=== PATIENT | male | born 1965 | race African-American/Black ===

== ENCOUNTER 2020-06-02 21:18 | Inpatient (IN) | payer MEDICAID ==
[~2020-06-02] VITALS: Ht 175.3 cm; Wt 72.1 kg
[2020-06-02] MEDS ORDERED: ONDANSETRON HCL/PF 4 MG/2 ML VIAL ONE (21:44)
--- NOTE | 2020-06-02 21:52 | NUR ---
[facility]IB[facility]60 BUS STOP C/O "FEELING SICK"/ABD PAIN. PT ASLEEP, EASILY AWAKEN BY VERBAL STIMULI & WILL GO BACK TO SLEEP. RR EVEN & UNLABORED. NO RESP DISTRESS NOTED AT THIS TIME. PT SEEN & EVAL'D BY EMILIE MCCLELLAND. MEDICATED ORDERED, PT JESUS WELL. WILL CONT TO MONITOR.
[2020-06-02] MEDS ORDERED: ONDANSETRON HCL/PF 4 MG/2 ML VIAL IVP ONE (22:00)
[2020-06-02] MEDS ORDERED: IV NS 0.9% 1,000 ML BAG IV ONE (22:00)
[2020-06-02 22:04] LABS: BASOPHILS # (AUTO) 0.1 /CMM (0.0-0.2); BASOPHILS % (AUTO) 0.6 % (0.0-2.0); EOSINOPHILS % (AUTO) 1.8 % (0.0-6.0); HEMATOCRIT 48 % (39-51); HEMOGLOBIN 15.6 g/dL (13.5-17.5); LYMPHOCYTES # (AUTO) 0.8 /CMM (0.8-4.8); LYMPHOCYTES % (AUTO) 8.5 % (20.0-44.0); MEAN CORPUSCULAR HGB CONC 32 g/dl (31.0-36.0); MEAN CORPUSCULAR VOLUME 84 fL (80-96); MONOCYTES # (AUTO) 0.5 /CMM (0.1-1.30); MONOCYTES % (AUTO) 5.7 % (2.0-12.0); NEUTROPHILS # (AUTO) 7.8 /CMM (1.8-8.9); NEUTROPHILS % (AUTO) 83.4 % (43.0-81.0); PLATELET COUNT (AUTO) 300 /CMM (150-450); RED BLOOD CELL COUNT(AUTO) 5.74 MIL/uL (4.5-6.0); WHITE BLOOD COUNT (AUTO) 9.4 K/uL (4.3-11.0)
[2020-06-02 22:28] LABS: ALANINE AMINOTRANSFERASE 21 U/L (12-78); ALBUMIN 4.5 g/dL (3.4-5.0); ALKALINE PHOSPHATASE 76 U/L (46-116); ASPARTATE AMINOTRANSFERASE 14 U/L (15-37); BILIRUBIN,DIRECT 0.1 mg/dL (0.0-0.2); BILIRUBIN,TOTAL 0.5 mg/dL (0.2-1.0); CALCIUM, SERUM 9.7 mg/dL (8.5-10.1); CARBON DIOXIDE 29 mmol/L (21-32); CHLORIDE 102 mmol/L (98-107); CREATININE 1.1 mg/dL (0.6-1.3); GLUCOSE 140 mg/dL (74-106); LIPASE 107 U/L (73-393); POTASSIUM 3.6 mmol/L (3.5-5.1); SODIUM SERUM 140 mmol/L (136-145); TOTAL PROTEIN, SERUM 8.6 g/dL (6.4-8.2); UREA NITROGEN, BLOOD 12 mg/dL (7-18)
--- NOTE | 2020-06-02 22:50 | NUR ---
PT TO CT VIA [facility].
[2020-06-02] MEDS ORDERED: KETOROLAC TROMETHAMINE INJ 30 MG/ML VIAL IV ONE (23:00)
--- NOTE | 2020-06-02 23:05 | NUR ---
PT BACK FROM CT. MEDICATED PER KRYSTIN'S ORDER, PT JESUS WELL.
--- NOTE | 2020-06-03 00:05 | NUR ---
Pt refuses NG Tube insertion. Dr Escobedo aware.
--- NOTE | 2020-06-03 00:18 | NUR ---
CALLED LAB FOR COVID SWAB
--- NOTE | 2020-06-03 00:25 | NUR ---
covid swab collected and sent to lab.
[2020-06-03 00:36] LABS: APPEARANCE,URINE Clear (CLEAR); BILIRUBIN,URINE SMALL (NEGATIVE); BLOOD, URINE Negative Ery/uL (NEGATIVE); COLOR,URINE Yellow (YELLOW); KETONES,URINE Negative (NEGATIVE); LEUKOCYTE ESTERASE ,URINE Negative (NEGATIVE); NITRITE, URINE Negative (NEGATIVE); PH,URINE 5.5 (5.0-8.0); PROTEIN,URINE Trace mg/dl (NEGATIVE); UGLUCOSE Negative (NEGATIVE); UROBILINOGEN,URINE 0.2 EU/dL (0.2)
[2020-06-03 00:48] LABS: BACTERIA,URINE None seen /HPF (None Seen); SQUAMOUS EPITHELIAL CELL,UR Few /HPF (None Seen); WBC,URINE 0-2 /HPF (0-3)
[2020-06-03 00:49] LABS: MUCUS,URINE Many /LPF (None Seen)
--- NOTE | 2020-06-03 01:54 | NUR ---
REPORT GIVEN TO SARA JOVEL FOR NAYELY.
[2020-06-03] MEDS ORDERED: Z GUARD REMEDY 2 OZ OINT TP PRN (02:00)
[2020-06-03] MEDS ORDERED: MAG HYDROX/AL HYDROX/SIMETH 30 ML UDC PO PRN (02:00)
[2020-06-03] MEDS ORDERED: MORPHINE SULFATE INJ 2 MG/ML DISP.SYRIN IV PRN (02:00)
[2020-06-03] MEDS ORDERED: ONDANSETRON HCL/PF 4 MG/2 ML VIAL IVP PRN (02:00)
[2020-06-03] MEDS ORDERED: MAGNESIUM HYDROXIDE 30 ML UDC PO PRN (02:00)
[2020-06-03] MEDS ORDERED: HYDROCODONE/APAP 5/325MG 1 EACH TABLET PO PRN (02:00)
[2020-06-03] MEDS ORDERED: ACETAMINOPHEN 325 MG TABLET PO PRN (02:00)
--- NOTE | 2020-06-03 02:00 | NUR ---
STAFF FROM ADMITTING FLOOR FOR PATIENT STATES THAT ROOM IS BEING CLEANED WAIT 15 MINUTES.
--- NOTE | 2020-06-03 02:16 | NUR ---
PATIENT TAKEN TO ROOM.
--- NOTE | 2020-06-03 02:19 | NUR ---
RN NOTE PT ARRIVED TO UNIT, V/S T. 97.9, BP 92/59 PULSE 68, RR 18, O2 SAT 100% ON ROOM AIR. PT IN NO RESPIRATORY DISTRESS. PT A/O X 3, IV TO RFA PATENT, INTACT AND FLUSHING WELL. PT CLEANED AND MADE COMFORTABLE. PT DENIES ANY PAIN AT THIS TIME. SAFETY MEASURES IN PLACE, BED LOCKED AND IN LOWEST POSITION, CALL LIGHT WITHIN REACH WILL CONTINUE TO MONITOR PT.
[2020-06-03] MEDS: IV NS 0.9% 1,000 ML IV PRN ×2 (02:28→22:39)
[2020-06-03 02:37] VITALS: BP 92/59
[2020-06-03 04:00] VITALS: BP 100/50
[2020-06-03 06:25] LABS: BASOPHILS # (AUTO) 0.1 /CMM (0.0-0.2); BASOPHILS % (AUTO) 0.7 % (0.0-2.0); EOSINOPHILS % (AUTO) 1.9 % (0.0-6.0); HEMATOCRIT 41 % (39-51); LYMPHOCYTES # (AUTO) 1.1 /CMM (0.8-4.8); LYMPHOCYTES % (AUTO) 12.3 % (20.0-44.0); MEAN CORPUSCULAR HGB CONC 32 g/dl (31.0-36.0); MEAN CORPUSCULAR VOLUME 85 fL (80-96); MONOCYTES # (AUTO) 0.5 /CMM (0.1-1.30); MONOCYTES % (AUTO) 6.3 % (2.0-12.0); NEUTROPHILS # (AUTO) 6.8 /CMM (1.8-8.9); NEUTROPHILS % (AUTO) 78.8 % (43.0-81.0); PLATELET COUNT (AUTO) 255 /CMM (150-450); RED BLOOD CELL COUNT(AUTO) 4.79 MIL/uL (4.5-6.0); WHITE BLOOD COUNT (AUTO) 8.6 K/uL (4.3-11.0)
[2020-06-03 06:43] LABS: CALCIUM, SERUM 8.4 mg/dL (8.5-10.1); CREATININE 0.9 mg/dL (0.6-1.3); MAGNESIUM 2.2 mg/dL (1.8-2.4); PHOSPHORUS 3.1 mg/dL (2.5-4.9); POTASSIUM 3.9 mmol/L (3.5-5.1)
--- NOTE | 2020-06-03 06:48 | NUR ---
RN CLOSING NOTE PT RESTING IN BED WITH HEAD IN SEMI-FOWLERS POSITION. PT ON ROOM AIR AND IN NO RESPIRATORY DISTRESS THROUGHOUT SHIFT. PT CURRENTLY NPO. IV TO RFA PATENT, INTACT AND FLUSHING WELL. NS INFUSING AT 75 ML/HR. NO C/O PAIN DURING SHIFT. SAFETY MEASURES IN PLACE, BED LOCKED AND IN LOWEST POSITION, CALL LIGHT WITHIN REACH. ENDORSED TO AM RN FOR NAYELY.
[2020-06-03 07:05] LABS: THYROID STIMULATING HORMONE 0.898 uIU/mL (0.358-3.74)
--- NOTE | 2020-06-03 07:05 | NUR ---
RN OPENING NOTE RECEIVED PT IN BED, RESTING WITH HEAD IN SEMI-FOWLERS POSITION. PT ON ROOM AIR AND SATURATING AT 99% . PT CURRENTLY NPO. IV TO RFA @ 75ML/HR. PATENT, INTACT AND FLUSHING WELL. NO C/O PAIN DURING SHIFT. SAFETY MEASURES IN PLACE, BED LOCKED AND IN LOWEST POSITION, CALL LIGHT WITHIN REACH. WILL CONTINUE TO MONITOR
[2020-06-03 16:00] VITALS: BP 124/76
--- NOTE | 2020-06-03 18:06 | NUR ---
Charlotte from case management called, dialed ext [phone] and connected patient to Charlotte from room .
--- NOTE | 2020-06-03 18:36 | NUR ---
RN CLOSING NOTE WILL ENDORSE PATIENT TO PM NURSE FOR NAYELY. PT RESTING IN BED COMFORTABLY. PATIENT IS ON ROOM AIR SATURATING AT 98%. NO RESPIRATORY DISTRESS THROUGHOUT SHIFT. PT PLACED ON REGULARS DIET SINCE 12:00 PER MD. IV TO RFA PATENT, INTACT AND FLUSHING WELL. SAFETY MEASURES IN PLACE, BED LOCKED AND IN LOWEST POSITION, CALL LIGHT WITHIN REACH.
--- NOTE | 2020-06-03 19:30 | NUR ---
RN OPENING NOTES client is resting in bed on RA, Sat 100%. Client denies pain, no S/S of pain. A/O x3. No s/s of distress. RFA 20G, flushing well. All safety mechanisms in place at this time, will continue to monitor.
--- NOTE | 2020-06-03 22:32 | NUR ---
RN NOTES The client refuses IV fluids. The client has been eating 100% of the meals and requests extra fluids for oral intake. Will continue to monitor.
[2020-06-04 04:00] VITALS: BP 124/76
--- NOTE | 2020-06-04 06:35 | NUR ---
RN CLOSING NOTES client remains stable with no chage of condition. VS within normal limits, sat 100% on RA, denies pain, no s/s of distress at this time. A/o x3, verbal, and able to ambulate. All needs have been rendered at this time. Bed in the lowest position, side rails up x2, call light within reach. Will endorse the next shift.
--- NOTE | 2020-06-04 09:13 | NUR ---
RN OPENING NOTE RECEIVED PT IN BED, RESTING WITH HEAD IN SEMI-FOWLERS POSITION. PT ON ROOM AIR AND SATURATING AT 98% . NOTED IV TO RFA, PATENT, INTACT AND FLUSHING WELL. SAFETY MEASURES IN PLACE, BED LOCKED AND IN LOWEST POSITION, CALL LIGHT WITHIN REACH. WILL CONTINUE TO MONITOR
--- NOTE | 2020-06-04 13:15 | NUR ---
SW CONSULT: ALISSA conducted social work case manager consult remotely to address the pt's homeless status. ALISSA consulted with pt's RN, Rizwana for assistance in setting up the phone call. Pt reported he is NOT homeless, rents a room in [place] on [facility]" and his plan is to discharge back to his room. Pt refused to speak to SW beyond clarification of his housing status, and refused all services. surgical services coordinator available for support as needed.
--- NOTE | 2020-06-04 14:10 | NUR ---
PER ORDERS , CLIENT WAS DISCHARGE . STABLE VITALS, REMOVED RFA # 20 . CLIENT SIGNED THE HOMELESS CHECKLIST LIST. CLIENT WILL TAKE THE BUS.
== END 2020-06-04 16:41 | disposition home or self-care (01) | DRG 247 ==
LOC: ER 21:20 → MEDSG1 06-03 01:37
PROVIDERS: ADMIT Nurse Practitioner Acute Care; ATTEND Nurse Practitioner Acute Care
DX: K56.609 Unspecified intestinal obstruction, unspecified as to partial versus complete obstruction (principal); Z59.0 Homelessness; E11.9 Type 2 diabetes mellitus without complications
CPT/HCPCS: 36415; 74018; 80048-TC; 80061-TC; 80076-TC; 81000-TC; 83690-TC; 83735-TC; 84100-TC; 84443-TC; 84484-TC; 85025-TC; 87081-TC; G0378; G0480; J1885; J2405; J3490; J7030; U0003-CS

== ENCOUNTER 2021-02-19 22:36 | Inpatient (IN) | payer MEDICAID ==
[~2021-02-19] VITALS: Ht 172.7 cm; Wt 74.8 kg
--- NOTE | 2021-02-19 22:46 | NUR ---
PT AAOX4. BIBRA C/O GEN ABD PAIN, PT PLACED ON MONITOR AND PULSE OX. ER MD AT BEDSIDE. AWAITING ORDERS.
--- NOTE | 2021-02-19 22:47 | NUR ---
RADIOLOGY AT BEDSIDE FOR CHEST XRAY.
[2021-02-19] MEDS ORDERED: ASPIRIN 81 MG TAB.CHEW ONE (22:50)
[2021-02-19] MEDS ORDERED: NITROGLYCERIN PACKET 1 GM PACKET ONE (22:50)
[2021-02-19] MEDS ORDERED: OLANZAPINE 5 MG TABLET ONE (22:50)
[2021-02-19] MEDS ORDERED: OLANZAPINE 5 MG TABLET PO ONE (23:00)
[2021-02-19] MEDS ORDERED: ASPIRIN 81 MG TAB.CHEW PO ONE (23:00)
[2021-02-19] MEDS ORDERED: NITROGLYCERIN PACKET 1 GM PACKET TD ONE (23:00)
--- NOTE | 2021-02-19 23:12 | NUR ---
ANUJID SWABBED, SENT TO LAB.
[2021-02-19 23:14] LABS: BASOPHILS # (AUTO) 0.1 /CMM (0.0-0.2); BASOPHILS % (AUTO) 0.7 % (0.0-2.0); HEMATOCRIT 36 % (39-51); LYMPHOCYTES # (AUTO) 0.6 /CMM (0.8-4.8); LYMPHOCYTES % (AUTO) 5.4 % (20.0-44.0); MEAN CORPUSCULAR HGB CONC 33 g/dl (31.0-36.0); MEAN CORPUSCULAR VOLUME 82 fL (80-96); MONOCYTES # (AUTO) 0.1 /CMM (0.1-1.30); MONOCYTES % (AUTO) 0.6 % (2.0-12.0); NEUTROPHILS # (AUTO) 8.1 /CMM (1.8-8.9); NEUTROPHILS % (AUTO) 67.6 % (43.0-81.0); PLATELET COUNT (AUTO) 270 /CMM (150-450); RED BLOOD CELL COUNT(AUTO) 4.42 MIL/uL (4.5-6.0)
[2021-02-19 23:16] LABS: EOSINOPHILS % (AUTO) 25.7 % (0.0-6.0)
[2021-02-19 23:28] LABS: EOSINOPHILS % (MANUAL) 5 % (0-4); LYMPHOCYTES % (MANUAL) 5 % (16-48); MONOCYTES % (MANUAL) 7 % (0-11.0); NEUTROPHILS % (MANUAL) 83 (42-76)
--- NOTE | 2021-02-19 23:30 | NUR ---
BROUGHT TO CT
[2021-02-19 23:41] LABS: CALCIUM, SERUM 8.9 mg/dL (8.5-10.1); CARBON DIOXIDE 29 mmol/L (21-32); CHLORIDE 104 mmol/L (98-107); CREATININE 1.1 mg/dL (0.6-1.3); GLUCOSE 103 mg/dL (74-106); POTASSIUM 3.5 mmol/L (3.5-5.1); SODIUM SERUM 140 mmol/L (136-145); UREA NITROGEN, BLOOD 11 mg/dL (7-18)
[2021-02-19 23:46] LABS: CHOLESTEROL 138 mg/dL (<200); HDL CHOLESTEROL 92 mg/dL (40-60); LDL 39 mg/dL (0-99); TRIGLYCERIDES 48 mg/dL (30-150)
--- NOTE | 2021-02-19 23:46 | NUR ---
BROUGHT BACK FROM CT. PT UNABLE TO PROVDIE URINE SAMPLE. AMERICO VICTORIA AWARE. Addendum: 02/19/21 at 2347 by EVICTOR PROVIDE*
[2021-02-19 23:53] LABS: ALANINE AMINOTRANSFERASE 24 U/L (12-78); ALKALINE PHOSPHATASE 99 U/L (46-116); ASPARTATE AMINOTRANSFERASE 21 U/L (15-37); B-TYPE NATRIURETIC PEPTIDE 517 PG/ML (0-125); BILIRUBIN,DIRECT 0.1 mg/dL (0.0-0.2); BILIRUBIN,TOTAL 0.4 mg/dL (0.2-1.0); TOTAL PROTEIN, SERUM 7.2 g/dL (6.4-8.2)
--- NOTE | 2021-02-19 23:56 | NUR ---
URINE COLLECTED, SENT TO LAB.
[2021-02-20 00:04] LABS: BILIRUBIN,URINE NEGATIVE (NEGATIVE); COLOR,URINE YELLOW (YELLOW); LEUKOCYTE ESTERASE ,URINE NEGATIVE (NEGATIVE); NITRITE, URINE NEGATIVE (NEGATIVE); PH,URINE 6.5 (5.0-8.0); PROTEIN,URINE NEGATIVE (NEGATIVE); UGLUCOSE NEGATIVE (NEGATIVE); UROBILINOGEN,URINE 0.2 EU/dL (0.2)
--- NOTE | 2021-02-20 00:13 | NUR ---
PT FELL ASLEEP, SAT 92%. PT PLACED ON 2L NC. SAT 99%.
--- NOTE | 2021-02-20 00:35 | NUR ---
DR. RICHARDS SPEAKING WITH LESLEY CUI DNP REGARDING ADMISSION
--- NOTE | 2021-02-20 01:02 | NUR ---
REPORT GIVEN TO LUKAS RN FOR NAYELY
--- NOTE | 2021-02-20 01:14 | NUR ---
PT TRANSFERED PER ACLS PROTOCOL
[2021-02-20 01:15] VITALS: BP 108/70
[2021-02-20] MEDS ORDERED: ACETAMINOPHEN 325 MG TABLET PO PRN (01:30)
[2021-02-20] MEDS ORDERED: HYDROCODONE/APAP 10/325MG TABLET PO PRN (01:30)
[2021-02-20] MEDS ORDERED: OLANZAPINE 5 MG TABLET PO PRN (01:30)
[2021-02-20] MEDS ORDERED: Z GUARD REMEDY 2 OZ OINT TP PRN (01:30)
[2021-02-20] MEDS ORDERED: ONDANSETRON HCL/PF 4 MG/2 ML VIAL IVP PRN (01:30)
--- NOTE | 2021-02-20 01:30 | NUR ---
RN NOTE RECEIVED PT FROM ER AT 0111. ADMITTED TO TELE, NO RESP DISTRESS NOTED. ON O2 VIA NC AT 2LPM. PT SLEEPING, UNABLE TO REMAIN AWAKE WITH DEEP STIMULATION, WILL OPEN EYES AND FALLS BACK TO SLEEP, ALSO SNORING WERE NOTED. UNABLE TO OBTAIN ANY INFORMATION/HISTORY WITH PATIENT. NO SIGNS OF PAIN OR DISCOMFORT NOTED. HOOKED TO EXTERNAL TELE MONITOR, SHOWS SR WITH PVCS. IV ON RFA PATENT AND INTACT. PT WITH MULTIPLE/SCATTERED SCARS, NO SIGNS OF INFECTION NOTED. PT BELONGINGS LISTED, FOUND 1 CIGARETTE AND WHARF BUILDER, GAVE TO CHARGE NURSE WAS PUT ON LOCKER. ALL SAFETY MEASURES IMPLEMENTED PER PROTOCOL. CALL LIGHT WITHIN REACH. BED LOCKED IN LOWEST POSITION. WILL CONTINUE TO MONITOR.
[2021-02-20] MEDS: ENOXAPARIN SODIUM 40 MG/0.4 ML DISP.SYRIN SQ SCH ×2 (02:28→21:30)
[2021-02-20 04:00] VITALS: BP 112/58
[2021-02-20 06:25] LABS: BASOPHILS % (AUTO) 0.5 % (0.0-2.0); EOSINOPHILS % (AUTO) 6.4 % (0.0-6.0); HEMATOCRIT 36 % (39-51); HEMOGLOBIN 11.6 g/dL (13.5-17.5); LYMPHOCYTES # (AUTO) 1.1 /CMM (0.8-4.8); LYMPHOCYTES % (AUTO) 11.8 % (20.0-44.0); MEAN CORPUSCULAR HGB CONC 33 g/dl (31.0-36.0); MEAN CORPUSCULAR VOLUME 82 fL (80-96); MONOCYTES # (AUTO) 0.6 /CMM (0.1-1.30); NEUTROPHILS # (AUTO) 7.1 /CMM (1.8-8.9); NEUTROPHILS % (AUTO) 75.3 % (43.0-81.0); PLATELET COUNT (AUTO) 262 /CMM (150-450); RED BLOOD CELL COUNT(AUTO) 4.35 MIL/uL (4.5-6.0); WHITE BLOOD COUNT (AUTO) 9.4 K/uL (4.3-11.0)
--- NOTE | 2021-02-20 06:33 | NUR ---
RN NOTES PT REMAIN ASLEEP. AROUSES EASILY BUT FALLS BACK TO SLEEP RIGHT AWAY. PT DENIES ANY PAIN. PT ABLE TO USE URINAL. IV REMAIN INTACT AND PATENT. CONTINUE ON O2 AT 2LPM. NO DISTRESS NOTED, ALL SAFETY MEASURES MAINTAINED. WILL ENDORSE TO NEXT SHIFT NURSE FOR NAYELY.
[2021-02-20 07:20] LABS: ALBUMIN 2.8 g/dL (3.4-5.0); BILIRUBIN,TOTAL 0.6 mg/dL (0.2-1.0); CALCIUM, SERUM 8.4 mg/dL (8.5-10.1); CREATININE 1.1 mg/dL (0.6-1.3); MAGNESIUM 2.3 mg/dL (1.8-2.4); PHOSPHORUS 3.3 mg/dL (2.5-4.9); TOTAL PROTEIN, SERUM 6.8 g/dL (6.4-8.2)
[2021-02-20] MEDS: PANTOPRAZOLE 40 MG TABLET.DR PO SCH (07:29)
--- NOTE | 2021-02-20 07:40 | NUR ---
WOUND CARE CONSULT: PT PRESENTS INDEPENDENT WITH BED MOBILITY, CONTINENT WITH DRY SKIN AND SCARS TO LEGS, BUTTOCKS AND BACK, PRESENT ON ADMISSION. WILL SEE PRN.
--- NOTE | 2021-02-20 07:41 | NUR ---
RN OPENING NOTE PATIENT IS CURRENTLY ASLEEP IN BED WITH HOB AT [facility]. PATIENT HAS NO SIGNS OF LABORED BREATHING ON 2L NC. BLE SCARS NOTED. RFA #18 IS PATENT, INTACT, AND HAS NO SIGNS OF INFILTRATION. BED IS LOCKED IN THE LOWEST POSITION, 3 GUARD RAILS RAISED, CALL HANLEY WITHIN REACH, AND ALL HOSPITAL SAFETY PRECAUTIONS ARE BEING FOLLOWED. WILL CONTINUE TO MONITOR THROUGHOUT SHIFT.
[2021-02-20 08:00] VITALS: BP 110/80
[2021-02-20] MEDS: ASPIRIN EC 81 MG TABLET.DR PO SCH (09:02)
[2021-02-20 12:00] VITALS: BP 113/63
--- NOTE | 2021-02-20 13:00 | NUR ---
Cigarette And Filter Chief Inspector: services tech received request for consult for homelessness. SW will follow up with the patient at a later time.
[2021-02-20 16:00] VITALS: BP 109/70
[2021-02-20] MEDS: OLANZAPINE 5 MG TABLET PO SCH (17:41)
--- NOTE | 2021-02-20 18:51 | NUR ---
RN CLOSING NOTE PATIENT IS CURRENTLY IN BED WITH HOB AT [facility]. PATIENT HAS NO SIGNS OF LABORED BREATHING ON 2L NC. BLE SCARS NOTED. RFA #18 IS PATENT, INTACT, AND HAS NO SIGNS OF INFILTRATION. BED IS LOCKED IN THE LOWEST POSITION, 3 GUARD RAILS RAISED, CALL HANLEY WITHIN REACH, AND ALL HOSPITAL SAFETY PRECAUTIONS ARE BEING FOLLOWED. ALL DUE MEDS GIVEN DURING SHIFT AND PATIENT REMAINED STABLE. WILL ENDORSE TO WINDER FIXER RN.
--- NOTE | 2021-02-20 19:30 | NUR ---
RN OPENING NOTES: RECEIVED PT A/OX3 IN BED SLEEPING COMFORTABLY. PATIENT IN NO S/SX OF ACUTE DISTRESS AT THIS TIME. NO SOB NOTED. PATIENT'S BREATHING IS EVEN AND UNLABORED. PATIENT IS ON 2L OF OXYGEN VIA NC; TOLERATING WELL. PATIENT ON TELE MONITORING READING SINUS RHYTHM AT THE TIME OF RECEIVED. PATIENT ON CARDIAC DIET; TOLERATES WELL. NOTED IV SITE ON R FA#18; PATENT, INTACT AND FLUSHING WELL; NO S/S OF INFECTION OR INFILTRATION. WITH URINAL @ BEDSIDE. SAFETY MEASURES HAVE BEEN PROVIDED AND IMPLEMENTED. PATIENT BED ALARM IS ON. HEAD OF BED ELEVATED. BED IS LOCKED, IN LOWEST POSITION AND SIDE RAILS UP. CALL LIGHT WITHIN REACH OF THE PATIENT. APPLICABLE ISOLATION PRECAUTIONS IN PLACE. WILL CONTINUE TO MONITOR AND REASSESS FOR ANY CHANGES AND WILL CARRY OUT ANY ONGOING AND ACTIVE MD ORDER.
[2021-02-20 20:00] VITALS: BP 122/71
--- NOTE | 2021-02-20 23:00 | NUR ---
RN NOTES NO CHANGE IN PATIENT CONDITION AT THIS TIME PATIENT VITALS STABLE, NO SIGNS OF ACUTE RESPIRATORY DISTRESS. VENEER JOINTER MADE AWARE. WILL CONTINUE TO MONITOR AND REASSESS FOR ANY CHANGES THROUGHOUT THE SHIFT.
[2021-02-21] VITALS: BP 116/74
--- NOTE | 2021-02-21 03:00 | NUR ---
RN NOTES PATIENT REMAINS IN NO ACUTE RESPIRATORY DISTRESS AT THIS TIME, NO CHANGES TO CONDITION/STATUS. PHOTOGRAPHIC INTELLIGENCE OFFICER WELL AWARE. WILL CONTINUE TO MONITOR AND REASSESS FOR ANY CHANGES THROUGHOUT THE SHIFT
[2021-02-21 04:00] VITALS: BP 124/65
--- NOTE | 2021-02-21 06:56 | NUR ---
RN CLOSING NOTE: PATIENT REMAINS IN ROOM RESTING COMFORTABLY.NO SIGNS OF RESPIRATORY DISTRESS PATIENT STILL ON 2L O2 VIA NC ;TOLERATING WELL SATURATING @ >95% SP02.PATIENT IS CLEAN , DRY AND COMFORTABLE THROUGHOUT THE SHIFT. ALL DUE MEDS GIVEN ORDERED ;PATIENT TOLERATED WELL. SAFETY MEASURES IMPLEMENTED, BED IN LOWEST POSITION, LOCKED, SIDE RAILS UP, CALL LIGHT WITHIN REACH. PATIENT ENDORSED TO INCOMING SHIFT RN WITH STABLE VITAL SIGN AND FOR CONTINUITY OF CARE.
[2021-02-21] MEDS: PANTOPRAZOLE 40 MG TABLET.DR PO SCH (07:45)
--- NOTE | 2021-02-21 07:48 | NUR ---
IT DISASTER RECOVERY MANAGER NOTE: PATIENT REMAINS IN ROOM RESTING COMFORTABLY.NO SIGNS OF RESPIRATORY DISTRESS PATIENT STILL ON RA AT THIS TIME NO SOB NOTED SATURATING @ >95% SP02.PATIENT IS CLEAN , DRY AND SAFETY MEASURES IMPLEMENTED, BED IN LOWEST POSITION, LOCKED, SIDE RAILS UP, CALL LIGHT WITHIN REACH. ON TELE MONITOR HR 77 , RT FA HL INTACT AND PATENT ,WILL CONT TO MONITOR,HAVING BREAKFAST
[2021-02-21 08:00] VITALS: BP 130/73
[2021-02-21] MEDS: OLANZAPINE 5 MG TABLET PO SCH (08:13)
[2021-02-21] MEDS: ASPIRIN EC 81 MG TABLET.DR PO SCH (08:13)
--- NOTE | 2021-02-21 10:20 | NUR ---
telecommunications field technician note explained to patient wait for social working for information for researches placement, but strangely refused to wait wants to go now ama
--- NOTE | 2021-02-21 10:25 | NUR ---
COTTON MACHINE OPERATOR NOTE PATIENT WANTS TO GO AMA ,EXPLANATION GIVEN TO BE SEEN BY DOCTOR AND BENEFITS TO STAY IN HOSPITAL , BUT STILL WANTS TO GO AMA PHIL RN ECONOMETRICIAN NOTIFIED, PATIENT REFUSED TO WAIT FOR PAPER WORK STATED I WONT TO GO NOW , TELE REMOVED HL ON RT FA REMOVED, DRY DRESSING APPLIED , NO BLEEDING NOTED, BELONGING SIGNED, ASSISTED TO PLACE ON [address] AND TAKEN TO LOBBY , FORM FOR AMA SIGNED BY PATIENT , LEFT A HOSPITAL WITH STABLE CONDITION
--- NOTE | 2021-02-21 13:30 | NUR ---
SW attempted to meet with pt. for homelessness and provide homeless resources, assist with discharge. However, pt. has already left AMA.
== END 2021-02-21 10:20 | disposition left against medical advice (07) | DRG 816 ==
LOC: ER 22:37 → TELE1 02-20 00:54 → MEDSG1 02-21 08:03 → TELE1 02-21 08:05
PROVIDERS: ADMIT Nurse Practitioner Acute Care; ATTEND Nurse Practitioner Acute Care
DX: T40.5X1A Poisoning by cocaine, accidental (unintentional), initial encounter (principal); I25.10 Atherosclerotic heart disease of native coronary artery without angina pectoris; E11.9 Type 2 diabetes mellitus without complications; G92 Toxic encephalopathy; I10 Essential (primary) hypertension; E44.0 Moderate protein-calorie malnutrition; Z59.0 Homelessness; Z20.822 Contact with and (suspected) exposure to COVID-19; F25.9 Schizoaffective disorder, unspecified; F29 Unspecified psychosis not due to a substance or known physiological condition; Z87.891 Personal history of nicotine dependence; E78.5 Hyperlipidemia, unspecified; E78.00 Pure hypercholesterolemia, unspecified; F14.10 Cocaine abuse, uncomplicated; D64.9 Anemia, unspecified; Y92.009 Unspecified place in unspecified non-institutional (private) residence as the place of occurrence of the external cause; F12.10 Cannabis abuse, uncomplicated
CPT/HCPCS: 36415; 71045-TC; 80048-TC; 80053-TC; 80061-TC; 80076-TC; 83735-TC; 83880; 84100-TC; 84484-TC; 85025-TC; 87081-TC; 93307-TC; 94799-TC; 97116-TC; 97530-TC; C9803; G0378; J1650; U0003

== ENCOUNTER 2021-03-12 22:28 | Emergency (ER) | payer OTHER ==
[~2021-03-12] VITALS: Ht 167.6 cm; Wt 74.8 kg
[2021-03-12 22:33] VITALS: BP 136/86
[2021-03-12] MEDS ORDERED: IBUPROFEN 600 MG TABLET PO ONE (23:30)
[2021-03-12] MEDS ORDERED: IBUPROFEN 600 MG TABLET ONE (23:46)
== END 2021-03-13 00:27 | disposition home or self-care (01) ==
LOC: ER 22:29
DX: M54.5 Low back pain (principal); E11.9 Type 2 diabetes mellitus without complications; Z59.0 Homelessness

== ENCOUNTER 2022-11-05 04:09 | Emergency (ER) | payer OTHER ==
[~2022-11-05] VITALS: Ht 177.8 cm; Wt 64.0 kg
[2022-11-05 04:18] VITALS: BP 124/81
[2022-11-05] MEDS ORDERED: IBUPROFEN 400 MG TABLET PO ONE (04:30)
[2022-11-05] MEDS ORDERED: IBUPROFEN 400 MG TABLET ONE (04:35)
== END 2022-11-05 04:55 | disposition home or self-care (01) ==
LOC: ER 04:10
DX: R51.9 Headache, unspecified (principal); I10 Essential (primary) hypertension; E11.9 Type 2 diabetes mellitus without complications

== ENCOUNTER 2023-08-04 21:57 | Emergency (ER) | payer OTHER ==
[~2023-08-04] VITALS: Ht 177.8 cm; Wt 65.8 kg
[2023-08-04] MEDS ORDERED: IBUPROFEN 400 MG TABLET PO ONE (22:30)
[2023-08-04] MEDS ORDERED: IBUPROFEN 400 MG TABLET ONE (22:44)
[2023-08-04 23:08] VITALS: BP 143/85; TEMP 98.1; O2SAT 98
== END 2023-08-04 23:08 | disposition home or self-care (01) ==
LOC: ER 22:00
DX: M25.511 Pain in right shoulder (principal); W18.39XA Other fall on same level, initial encounter; Y93.89 Activity, other specified; Y92.89 Other specified places as the place of occurrence of the external cause; Y99.8 Other external cause status
CPT/HCPCS: 73030-TC

== ENCOUNTER 2023-10-27 00:39 | Emergency (ER) | payer OTHER | END 2023-10-27 02:56 | disposition left against medical advice (07) | LOC: ER 00:41 | DX: H57.89 Other specified disorders of eye and adnexa (principal); Z53.21 Procedure and treatment not carried out due to patient leaving prior to being seen by health care provider ==

== ENCOUNTER 2023-11-27 11:49 | Inpatient (IN) | payer OTHER ==
[~2023-11-27] VITALS: Ht 177.8 cm; Wt 77.6 kg
[2023-11-27] MEDS ORDERED: KETOROLAC TROMETHAMINE 15 MG/ML VIAL ONE (12:26)
[2023-11-27] MEDS ORDERED: ONDANSETRON HCL/PF 4 MG/2 ML VIAL ONE (12:26)
[2023-11-27] MEDS ORDERED: IV NS 0.9% 1,000 ML BAG IV ONE (12:30)
[2023-11-27] MEDS ORDERED: ONDANSETRON HCL/PF 4 MG/2 ML VIAL IVP ONE (12:30)
[2023-11-27] MEDS ORDERED: KETOROLAC TROMETHAMINE 15 MG/ML VIAL IV ONE (12:30)
[2023-11-27 15:18] LABS: BASOPHILS % (AUTO) 0.3 % (0.0-2.0); EOSINOPHILS # (AUTO) 0.3 K/uL (0.0-0.7); EOSINOPHILS % (AUTO) 5.1 % (0.0-6.0); HEMATOCRIT 39 % (39-51); HEMOGLOBIN 12.7 g/dL (13.5-17.5); LYMPHOCYTES # (AUTO) 0.5 K/uL (0.8-4.8); LYMPHOCYTES % (AUTO) 8.8 % (20.0-44.0); MEAN CORPUSCULAR HEMOGLOBIN 29 PG (26.0-33.0); MEAN CORPUSCULAR HGB CONC 33 g/dl (31.0-36.0); MEAN CORPUSCULAR VOLUME 87 fL (80-96); MONOCYTES # (AUTO) 0.3 K/uL (0.1-1.30); MONOCYTES % (AUTO) 5.9 % (2.0-12.0); NEUTROPHILS # (AUTO) 4.4 K/uL (1.8-8.9); NEUTROPHILS % (AUTO) 79.9 % (43.0-81.0); PLATELET COUNT (AUTO) 385 K/uL (150-450); RED BLOOD CELL COUNT(AUTO) 4.44 MIL/uL (4.5-6.0); RED CELL DISTRIBUTION WIDTH 17.8 % (11.5-15.0); WHITE BLOOD COUNT (AUTO) 5.5 K/uL (4.3-11.0)
[2023-11-27 15:35] LABS: CALCIUM, SERUM 9.2 mg/dL (8.5-10.1); CARBON DIOXIDE 28 mmol/L (21-32); CHLORIDE 106 mmol/L (98-107); CREATININE 0.9 mg/dL (0.6-1.3); GLUCOSE 101 mg/dL (74-106); POTASSIUM 3.9 mmol/L (3.5-5.1); SODIUM SERUM 142 mmol/L (136-145); UREA NITROGEN, BLOOD 16 mg/dL (7-18)
[2023-11-27 15:42] LABS: LACTIC ACID 1.5 mmol/L (0.4-2.0)
[2023-11-27 15:48] LABS: ALANINE AMINOTRANSFERASE 21 U/L (12-78); ALBUMIN 3.6 g/dL (3.4-5.0); ALKALINE PHOSPHATASE 82 U/L (46-116); ASPARTATE AMINOTRANSFERASE 20 U/L (15-37); BILIRUBIN,DIRECT 0.1 mg/dL (0.0-0.2); BILIRUBIN,TOTAL 0.3 mg/dL (0.2-1.0); LIPASE 59 U/L (16-77); TOTAL PROTEIN, SERUM 7.9 g/dL (6.4-8.2)
[2023-11-27 16:07] LABS: APPEARANCE,URINE CLEAR (CLEAR); BILIRUBIN,URINE NEGATIVE (NEGATIVE); BLOOD, URINE NEGATIVE Ery/uL (NEGATIVE); COLOR,URINE YELLOW (YELLOW); KETONES,URINE NEGATIVE (NEGATIVE); LEUKOCYTE ESTERASE ,URINE NEGATIVE (NEGATIVE); NITRITE, URINE NEGATIVE (NEGATIVE); PROTEIN,URINE TRACE mg/dl (NEGATIVE); UGLUCOSE NEGATIVE (NEGATIVE); UROBILINOGEN,URINE 0.2 EU/dL (0.2)
[2023-11-27 16:37] LABS: ADD URINE CULTURE NO; BACTERIA,URINE None seen /HPF (None Seen); RBC,URINE 0-2 /HPF (0-2); SQUAMOUS EPITHELIAL CELL,UR 0-2 /HPF (None Seen); WBC,URINE 0-2 /HPF (0-3)
[2023-11-27 16:48] LABS: ALCOHOL, BLOOD < 3 mg/dL (0-10); NT-PRO BNP 1456 pg/mL (0-125)
[2023-11-27 18:16] LABS: AMPHETAMINE, URINE NEGATIVE (NEGATIVE); BARBITURATE, URINE NEGATIVE (NEGATIVE); BENZODIAZEPINE, URINE NEGATIVE (NEGATIVE); CANNABINOID, URINE NEGATIVE (NEGATIVE); OPIATE, URINE NEGATIVE (NEGATIVE); PHENCYCLIDINE SCREEN,URINE NEGATIVE (NEGATIVE)
[2023-11-27 18:18] LABS: COCCAINE, URINE POSITIVE (NEGATIVE)
[2023-11-27 18:52] VITALS: BP 131/86; TEMP 98.1; O2SAT 92
[2023-11-27] MEDS ORDERED: IV NS 0.9% 1,000 ML IV PRN (19:30)
[2023-11-27] MEDS ORDERED: MAGNESIUM HYDROXIDE 30 ML UDC PO PRN (19:30)
[2023-11-27] MEDS ORDERED: MAG HYDROX/AL HYDROX/SIMETH 30 ML UDC PO PRN (19:30)
[2023-11-27] MEDS ORDERED: MORPHINE SULFATE INJ 2 MG/ML DISP.SYRIN IV PRN (19:30)
[2023-11-27] MEDS ORDERED: ONDANSETRON HCL/PF 4 MG/2 ML VIAL IVP PRN (19:30)
[2023-11-27] MEDS ORDERED: Z GUARD REMEDY 4 OZ OINT TP PRN (19:30)
[2023-11-27] MEDS ORDERED: ACETAMINOPHEN 325 MG TABLET PO PRN (19:30)
[2023-11-28 07:48] LABS: BASOPHILS % (AUTO) 0.5 % (0.0-2.0); EOSINOPHILS # (AUTO) 0.4 K/uL (0.0-0.7); EOSINOPHILS % (AUTO) 6.4 % (0.0-6.0); HEMATOCRIT 40 % (39-51); HEMOGLOBIN 13.1 g/dL (13.5-17.5); LYMPHOCYTES # (AUTO) 0.5 K/uL (0.8-4.8); LYMPHOCYTES % (AUTO) 8.8 % (20.0-44.0); MEAN CORPUSCULAR HEMOGLOBIN 29 PG (26.0-33.0); MEAN CORPUSCULAR HGB CONC 33 g/dl (31.0-36.0); MEAN CORPUSCULAR VOLUME 88 fL (80-96); MONOCYTES # (AUTO) 0.5 K/uL (0.1-1.30); MONOCYTES % (AUTO) 8.2 % (2.0-12.0); NEUTROPHILS # (AUTO) 4.5 K/uL (1.8-8.9); NEUTROPHILS % (AUTO) 76.1 % (43.0-81.0); PLATELET COUNT (AUTO) 379 K/uL (150-450); RED BLOOD CELL COUNT(AUTO) 4.57 MIL/uL (4.5-6.0); RED CELL DISTRIBUTION WIDTH 17.7 % (11.5-15.0); WHITE BLOOD COUNT (AUTO) 5.9 K/uL (4.3-11.0)
[2023-11-28] MEDS ORDERED: MORPHINE SULFATE INJ 4 MG/ML DISP.SYRIN IV PRN (08:00)
[2023-11-28 08:42] LABS: CALCIUM, SERUM 9.3 mg/dL (8.5-10.1); CREATININE 0.9 mg/dL (0.6-1.3); MAGNESIUM 2.4 mg/dL (1.8-2.4); PHOSPHORUS 3.6 mg/dL (2.5-4.9); POTASSIUM 3.9 mmol/L (3.5-5.1)
== END 2023-11-28 09:30 | disposition left against medical advice (07) | DRG 254 ==
LOC: ER 11:52 → TRANSITION 21:04
PROVIDERS: ADMIT Internal Medicine; ATTEND Internal Medicine
DX: K40.30 Unilateral inguinal hernia, with obstruction, without gangrene, not specified as recurrent (principal); I11.9 Hypertensive heart disease without heart failure; E11.9 Type 2 diabetes mellitus without complications; E78.5 Hyperlipidemia, unspecified; Z59.02 Unsheltered homelessness; H44.522 Atrophy of globe, left eye; Z87.891 Personal history of nicotine dependence; Z90.49 Acquired absence of other specified parts of digestive tract; Z53.29 Procedure and treatment not carried out because of patient's decision for other reasons
CPT/HCPCS: 36415; 70450-TC; 71045-TC; 80048-TC; 80076-TC; 81001; 82962-TC; 83605-TC; 83690-TC; 83735-TC; 83880; 84100-TC; 84484-TC; 85025-TC; 87040-TC; G0378; G0480; J1885; J2405

== ENCOUNTER 2024-02-15 22:48 | Emergency (ER) | payer OTHER ==
[~2024-02-15] VITALS: Ht 170.2 cm; Wt 63.5 kg
[2024-02-15] MEDS ORDERED: PANTOPRAZOLE 40 MG VIAL ONE (23:39)
[2024-02-15] MEDS ORDERED: ONDANSETRON HCL/PF 4 MG/2 ML VIAL ONE (23:40)
[2024-02-15] MEDS ORDERED: IOHEXOL-300 100 ML VIAL IV ONE (23:43)
[2024-02-15] MEDS ORDERED: CT SWABBABLE VALVE TRANS SET 1 EA INFUS.SET MC ONE (23:43)
[2024-02-15] MEDS ORDERED: IV NS 0.9% 250 ML IV ONE (23:43)
[2024-02-16] MEDS: ONDANSETRON HCL/PF 4 MG/2 ML VIAL IVP ONE
[2024-02-16] MEDS ORDERED: OLANZAPINE 10 MG VIAL IM ONE (00:06)
[2024-02-16] MEDS ORDERED: HYDROMORPHONE 1 MG/1 ML DISP.SYRIN ONE (00:23)
[2024-02-16] MEDS: IV NS 0.9% 1,000 ML BAG IV ONE (00:38)
[2024-02-16] MEDS: PANTOPRAZOLE 40 MG VIAL IV ONE (00:38)
[2024-02-16] MEDS: OLANZAPINE 10 MG VIAL IM ONE (00:39)
[2024-02-16] MEDS: HYDROMORPHONE INJ 2 MG/ML DISP.SYRIN IV ONE (00:39)
[2024-02-16 01:11] LABS: BASOPHILS % (AUTO) 0.4 % (0.0-2.0); EOSINOPHILS % (AUTO) 14.4 % (0.0-6.0); HEMATOCRIT 38 % (39-51); HEMOGLOBIN 12.3 g/dL (13.5-17.5); LYMPHOCYTES # (AUTO) 0.7 K/uL (0.8-4.8); LYMPHOCYTES % (AUTO) 10.4 % (20.0-44.0); MEAN CORPUSCULAR HEMOGLOBIN 28 PG (26.0-33.0); MEAN CORPUSCULAR HGB CONC 33 g/dl (31.0-36.0); MEAN CORPUSCULAR VOLUME 86 fL (80-96); MONOCYTES # (AUTO) 0.4 K/uL (0.1-1.30); MONOCYTES % (AUTO) 5.9 % (2.0-12.0); NEUTROPHILS # (AUTO) 4.8 K/uL (1.8-8.9); NEUTROPHILS % (AUTO) 68.9 % (43.0-81.0); PLATELET COUNT (AUTO) 305 K/uL (150-450); RED BLOOD CELL COUNT(AUTO) 4.39 MIL/uL (4.5-6.0); RED CELL DISTRIBUTION WIDTH 16.5 % (11.5-15.0)
[2024-02-16 01:25] LABS: INR 1.03 (0.91-1.10); PARTIAL THROMBOPLASTIN TIME 27.3 SEC (24.3-34.3); PROTHROMBIN TIME 10.9 SECS (9.2-11.1)
[2024-02-16 01:34] LABS: ALBUMIN 3.6 g/dL (3.4-5.0); BILIRUBIN,DIRECT 0.1 mg/dL (0.0-0.2); BILIRUBIN,TOTAL 0.3 mg/dL (0.2-1.0); CALCIUM, SERUM 8.7 mg/dL (8.5-10.1); POTASSIUM 3.3 mmol/L (3.5-5.1); TOTAL PROTEIN, SERUM 7.8 g/dL (6.4-8.2)
[2024-02-16 07:11] LABS: AMPHETAMINE, URINE NEGATIVE (NEGATIVE); BARBITURATE, URINE NEGATIVE (NEGATIVE); BENZODIAZEPINE, URINE NEGATIVE (NEGATIVE); CANNABINOID, URINE NEGATIVE (NEGATIVE); OPIATE, URINE NEGATIVE (NEGATIVE); PHENCYCLIDINE SCREEN,URINE NEGATIVE (NEGATIVE)
[2024-02-16 07:14] LABS: COCCAINE, URINE POSITIVE (NEGATIVE)
[2024-02-16] MEDS ORDERED: PANT20TA2 PO (09:11)
[2024-02-16] MEDS ORDERED: AMOX-430 PO (09:11)
[2024-02-16] MEDS ORDERED: ONDA4TAB5 PO (09:11)
[2024-02-16 09:24] VITALS: BP 144/85; TEMP 98.2; O2SAT 98
== END 2024-02-16 09:33 | disposition home or self-care (01) ==
LOC: ER 22:50
DX: R10.9 Unspecified abdominal pain (principal); I10 Essential (primary) hypertension; E78.5 Hyperlipidemia, unspecified; Z59.00 Homelessness unspecified
CPT/HCPCS: 99285; 96374; 96361; 96375 ×2; 93005; 71045; 74177; 36415 ×2; 80320; 80307; 96372; 85025; 80048; 83690; 80076; 85730; J2405; J7030 ×2; J7050; C9113; A4223; Q9967; J3490; J1170; G0480